=== PATIENT | male | born 1955 | race Two or more races ===

== ENCOUNTER 2024-03-27 11:07 | Day surgery (SDC) | payer OTHER, SELFPAY ==
--- NOTE | 2024-03-23 07:41 | HPS.HSE ---
Family Physician
-
Family Physician: NO INTERVIEW UNKNOWN
Chief Complaint
-
Abnormal stress test. Chest pain.
History of Present Illness
The patient is a 68 year old [place] male presenting today for chest pain. The patient has a history of coronary artery disease for which he underwent a CABG x4 in October 2017. A more recent cardiac catheterization in 2021 demonstrated residual 90%
RCA stenosis. This, however, has been treated medically. As of lately, the patient reports sharp, precordial chest pain that radiates down his left upper extremity and towards his jaw. This chest pain occurs randomly, even at times of rest. He
reports a wide variety of symptoms associated with his chest pain, which include shortness of breath, fatigue, lightheadedness, and dizziness. Nitroglycerin as needed provides him with relief. His routine mapping editor ordered a nuclear stress test
for further evaluation of his symptoms. His stress test on 03/14/2024 demonstrated a moderate sized area of ischemia in the inferior and inferolateral segments. It is recommended he undergo a left cardiac catheterization with bypass grafts at this
time given his ongoing symptoms and recent stress test results. He denies any current complaints today such as chest pain or shortness of breath at rest, nausea, vomiting, diarrhea, cough, sore throat, or fever.
Medical History
Past Medical History
Past Medical History: Reports Other
Additional Past Medical History:
1. Abnormal stress test.
2. Chest pain.
3. Coronary artery disease, status post CABG x4; residual 90% stenosis of RCA, treated medically.
4. Hypertension.
5. Hypercholesterolemia.
6. Mild right internal carotid atherosclerosis.
7. Mild mitral regurgitation.
8. Mild tricuspid regurgitation.
9. Non-insulin dependent diabetes with neuropathy.
10. GERD.
11. Lumbar degenerative disc disease.
12. Arthritis.
13. Overactive bladder.
14. Depression.
Past Surgical History: Reports Other
Additional Past Surgical History:
1. CABG x4.
2. Multiple cardiac catheterizations.
3. Lumbar surgery.
4. Bilateral cataract extraction.
5. Colonoscopy.
Social History
Tobacco: Non-smoker
Alcohol: None
Personal:
Living: Other (He lives with his in a 2 story home. )
Family History
Family History: Not pertinent
Allergies / Home Medications
Allergy/Medication List:
Home medications:
1. Aspirin 81 mg p.o. daily.
2. Lisinopril 20 mg p.o. daily.
3. Metformin 1000 mg p.o. twice a day.
4. Toprol XL 25 mg p.o. twice a day.
5. Omeprazole 40 mg p.o. daily.
6. Rosuvastatin 20 mg p.o. at bedtime.
7. Ozempic 0.5 mg subcutaneous weekly.
8. Oxybutynin 5 mg p.o. daily.
Allergies: No known allergies.
Review of Systems
-
A 12 point ROS was completed and negative except as noted: Yes
Physical Exam
Vital Signs
Blood pressure 121/75. Heart rate 66. Respirations 18. Pulse ox 100% on room air.
Height 5 feet, 8 inches. Weight 85.2 kg. BMI 28.6.
Physical Exam
General: Well Developed, Well Nourished and No Apparent Distress
HEENT: NormoCephalic, Moist mucous membranes, Atraumatic and PERRLA
Respiratory: Clear
Cardiac: Regular Rhythm
GI: Soft, Non Tender and Non Distended
Musculoskeletal: No Edema and Normal Gait & Station
Skin: Warm and Dry
Neuro: AO x 3 and Nonfocal/grossly intact
Laboratory Results
-
DIAGNOSTIC STUDIES as of 03/23/2024: White blood cell count 8.8. Hemoglobin 14.1. Platelet count 216,000. Sodium 135. Potassium 4.4. BUN 14. Creatinine 0.9. Glucose 123. Calcium 9.6. AST 44. ALT 47. Albumin 4.7
EKG 03/23/2024: Normal sinus rhythm. Cannot rule out inferior infarct, age undetermined. T wave abnormality, consider lateral ischemia. Compared to the prior EKG of 11/28/2019, no significant change was found.
Echocardiogram 05/05/2022: Ejection fraction is 55%. Mild mitral and tricuspid regurgitation. PASP 22 mmHg.
Impression/Plan
-
IMPRESSION/PLAN:
1. Abnormal stress test and chest pain: The patient is in need of a left cardiac catheterization with bypass grafts with Dr. Stas Scott on 03/27/2024. The benefits and risks of the procedure have been explained to the patient. The patient
understands these risks and wishes to proceed. He is aware to continue his daily baby Aspirin up to and including the morning of his procedure.
[2024-03-23 08:52] VITALS: BMI 28.6
[2024-03-23 09:36] LABS: % Basophils 0.7 % (0-2); % Immature Granulocytes 0.2 % (0-0.5); % Lymphocytes 33.5 % (20.5-51.1); % Monocytes 7.1 % (1.7-9.3); % Neutrophils 53.5 % (42.2-75.2); Absolute Basophils 0.1 10^3/uL (0-0.2); Absolute Eosinophils 0.4 10^3/uL (0-0.7); Absolute Monocytes 0.6 10^3/uL (0.1-0.6); Absolute Neutrophils 4.7 10^3/uL (1.4-6.5); Hematocrit 40.7 % (39.0-52.0); Hemoglobin 14.1 g/dL (13.0-18.0); Mean Corp Hgb Conc. 34.6 g/dL (33.0-37.0); Mean Corpuscular Hgb 28.5 pg (27.0-31.0); Mean Corpuscular Volume 82.4 fL (80.0-94.0); Nucleated Red Blood Cells % 0 % (-); Platelet Count 216 10^3/uL (130-400); Red Blood Cell Count 4.94 10^6/uL (4.70-6.10); Red Cell Dist. Width 13.2 % (11.5-14.5); White Blood Cell Count 8.8 10^3/uL (4.8-10.8)
[2024-03-23 09:58] LABS: ALT (SGPT) 47 U/L (0-50); AST (SGOT) 44 U/L (17-59); Albumin 4.7 g/dl (3.5-5.0); Alkaline Phosphatase 47 U/L (38-126); Blood Urea Nitrogen 14 mg/dl (9-20); Calcium 9.6 mg/dl (8.4-10.2); Carbon Dioxide 25 mmol/L (22-30); Chloride 99 mmol/L (98-107); Estimated Creatinine Clearance 78 ml/min; Glucose 123 mg/dl (70-99); Potassium 4.4 mmol/L (3.5-5.1); Sodium 135 mmol/L (135-145); Total Bilirubin 1.3 mg/dl (0.2-1.3); eGFR > 60.00
[2024-03-27] VITALS (9 sets, daily range): BP systolic 121–145; BP diastolic 68–78; BMI 25.7
[2024-03-27 11:47] LABS: Glucose - Point of Care 313 mg/dl (70-99)
--- NOTE | 2024-03-27 14:25 | ITS.CL.CATH ---
[employer] - Catheterization
Cardiac Catheterization
Procedure Report:
CARDIAC CATHETERIZATION REPORT
Date of Procedure: 03/27/2024
Referring: Leoncio Fowler DO
Indication: Worsening angina
HEMODYNAMIC DATA
AO: 135/68
LV: 135/14
LEFT VENTRICULOGRAPHY: Normal left-ventricular wall motion with EF 61%
CORONARY ANGIOGRAPHY
Dominance: Right
Left Main: Short without focal stenosis
LAD: The LAD is occluded in the midportion distal to the origin of the first septal cottrell operator and a small first diagonal branch. The mid and distal LAD fills via a patent left internal mammary artery graft. There is diffuse mild disease in the
LAD distal to the LJ graft touchdown into the distal LAD and there is severe stenosis of the true apical LAD which is unchanged from the prior study from 2021. A large second diagonal branch fills via the proximal limb of a sequential saphenous
vein graft with no disease distal to the touchdown site.
Circumflex: The circumflex gives rise to a tiny OM1, large OM 2, and medium sized bifurcating OM 3. OM 2 fills via the second limb of a sequential vein graft with good distal runoff. OM 3 has 90% proximal stenosis similar to its appearance on the
prior studies from 2021 and November 2019.
RCA: The RCA is dominant and moderately calcified. There is 60% stenosis in the midportion of the RCA at the crux. There is 70-80% ostial RPDA stenosis and 90% stenosis in the right AV groove branch just distal to the PDA origin and proximal to
the takeoff of a moderate-sized posterolateral branch. The appearance of the RCA is similar to its appearance from the prior study from 2021 as well as previous studies from both 2019 and 2016
Bypass grafts:
1. Left internal mammary graft to the LAD is widely patent excellent runoff
2. The sequential vein graft to D2�OM 2�RPDA remains widely patent with runoff at all 3 touchdown sites. There is severe diffuse disease in the RPDA distal to the touchdown site also unchanged from multiple prior studies
Closure Device: 6 Amharic Angio-Seal RFA
Radiation (mGy): 421
DAP (cm2.Gy): 37.6
Fluoroscopy time: 3.8 minutes
CONCLUSIONS
1: Normal left ventricular function with EF 61%
2: Multivessel CAD as described with patent ROMERO-LAD and patent [id number] bypass grafts
3. The anatomy is essentially unchanged compared with the prior study from May 2022
4. Continue angina for diffuse [place] vessel CAD not amenable to PCI
Copy to: Gerry Fowler DO, Ruel Palacios MD
Stas Scott MD, FAC, [facility]
[2024-03-27 14:43] LABS: Glucose - Point of Care 207 mg/dl (70-99)
[2024-03-27 17:09] LABS: Glucose - Point of Care 248 mg/dl (70-99)
== END 2024-03-27 17:35 | disposition home or self-care (01) ==
LOC: CATH 11:07
PROVIDERS: ATTENDING PHYSICIAN Internal Medicine Cardiovascular Disease
DX: I25.110 Atherosclerotic heart disease of native coronary artery with unstable angina pectoris (principal); R94.39 Abnormal result of other cardiovascular function study; Z95.5 Presence of coronary angioplasty implant and graft; I10 Essential (primary) hypertension; E78.00 Pure hypercholesterolemia, unspecified; I08.1 Rheumatic disorders of both mitral and tricuspid valves; E11.40 Type 2 diabetes mellitus with diabetic neuropathy, unspecified; K21.9 Gastro-esophageal reflux disease without esophagitis; Z79.82 Long term (current) use of aspirin; Z79.84 Long term (current) use of oral hypoglycemic drugs; Z79.85 Long-term (current) use of injectable non-insulin antidiabetic drugs
CPT/HCPCS: C1894; 36415; 80053; 82962; 85025; 93005; 93459; C1760; Q9967